=== PATIENT | male | born 1975 | race Caucasian/White ===

== ENCOUNTER 2017-11-01 07:13 | Emergency (ER) | payer OTHER ==
[2017-11-01 07:31] VITALS: RESP 16
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
--- NOTE | 2017-11-01 09:30 | CT ---
CT cervical spine History: Injury. Comparison: None available. Technique: Multiple contiguous axial images were performed through the cervical spine without the use of intravenous contrast. Subsequently, sagittal and coronal reformatted images were obtained. This CT exam was performed using one or more of the following dose reduction techniques: Automated exposure control, adjustment of the mA and/or kV according to patient size, and/or use of iterative reconstruction technique. Findings: Straightening of the normal cervical lordosis. Narrowing at the atlantodental interval with sclerosis. Mild anterior osteophytosis at the C5-6 level. No evidence of acute displaced fracture. Linear lucency through the left pars at the C7 vertebral body on the sagittal sequences series 601, image 72 does not persist on additional sequences and may represent a traversing vessel and or artifact. Impression: Degenerative changes. If pain persists, consider MRI. Linear lucency through the left pars at the C7 vertebral body on the sagittal sequences series 601, image 72 does not persist on additional sequences and may represent a traversing vessel and or artifact.
[2017-11-01 09:48] VITALS: BP 151/92; PULSE 63; TEMP 98.1
[2017-11-01 17:00] VITALS: O2SAT 100
== END 2017-11-01 09:49 | disposition home or self-care (01) ==
LOC: C.ER 07:13
DX: I10 Essential (primary) hypertension (principal); R51 Headache; V43.52XA Car driver injured in collision with other type car in traffic accident, initial encounter; Y92.414 Local residential or business street as the place of occurrence of the external cause